=== PATIENT | male | born 1940 | race Caucasian/White ===

== ENCOUNTER → 2017-01-12 | Outpatient (CLI) | payer OTHER ==
[~2017-01-12] MED LIST: ALBU90AE PO; AMLO5TAB2 PO; ASPI-496 PO; ATOR40TA PO; BUDE0.5A INH; CALC1TAB62 PO; CLOP75TA PO; CYAN10005 PO; GABA-827 PO; GABA400C PO; GLIP10TA13 PO; INSU100I13 SQ; LANS15CA5 PO; LISI-170 PO; METF850T2 PO; OMEP20TA62 PO; SAXA5TAB PO
== END | disposition home or self-care (01) ==
LOC: STAR 11:12
PROVIDERS: ATTEND Neurological Surgery
DX: Z01.818 Encounter for other preprocedural examination (principal); M48.06 Spinal stenosis, lumbar region
CPT/HCPCS: 93005

== ENCOUNTER 2017-01-18 08:56 | Inpatient (IN) | payer OTHER ==
[~2017-01-18] VITALS: Ht 185.4 cm; Wt 103.3 kg
[~2017-01-18 08:56] MED LIST changes: +BACITRACIN 50,000 UNIT ONE; +BUPIVACAINE/PF 0.5% ONE; +BUPIVACAINE/PF-EPI 0.5% 1:200K ONE; +THROMBIN 5,000 UNIT VIAL TP ONE; +VANCOMYCIN 1,000 MG ONE
[2017-01-18] MEDS ORDERED: HYDROmorphone 1 MG/ML, 1ML ONE (13:25)
[2017-01-18] MEDS ORDERED: FENTANYL PF 250 MCG/5ML ONE (13:26)
[2017-01-18 14:31] VITALS: BP 166/90
[2017-01-18] MEDS ORDERED: LIDOCAINE 1%, 2ML ONE (14:49)
[2017-01-18] MEDS ORDERED: GLYCOPYRROLATE 0.2MG/1ML ONE (15:58)
[2017-01-18] MEDS ORDERED: PHENYLEPHRINE 10 MG/ML ONE (15:58)
[2017-01-18] MEDS ORDERED: PROPOFOL 10 MG/ML, 20ML ONE ×2 (15:58)
[2017-01-18] MEDS ORDERED: CEFAZOLIN 1,000 MG ONE (15:58)
[2017-01-18] MEDS ORDERED: SUCCINYLCHOLINE 20 MG/ML, 10ML ONE (15:58)
[2017-01-18] MEDS ORDERED: ONDANSETRON 2MG/ML, 2ML ONE (15:58)
[2017-01-18] MEDS ORDERED: ONDANSETRON 2MG/ML, 2ML IVPush PRN (17:00)
[2017-01-18] MEDS ORDERED: hydrALAzine 20 MG/ML, 1ML IV PRN (17:00)
[2017-01-18] MEDS ORDERED: METOCLOPRAMIDE 5 MG/ML, 2ML IV PRN (17:00)
[2017-01-18] MEDS ORDERED: OXYcodone 5 MG/5 ML ORAL.SOL UDC PO PRN (17:00)
[2017-01-18] MEDS ORDERED: FENTANYL PF 100 MCG/2ML IV PRN (17:00)
[2017-01-18] MEDS ORDERED: HYDROmorphone 1 MG/ML, 1ML IV PRN (17:00)
[2017-01-18] MEDS ORDERED: ACETAMINOPHEN 325 MG TABLET PO PRN (17:00)
[2017-01-18] MEDS ORDERED: EPHEDRINE 50 MG/ML, 1ML IVPush PRN (17:00)
[2017-01-18] MEDS ORDERED: METOPROLOL 1 MG/ML, 5ML IV PRN (17:00)
[2017-01-18] MEDS ORDERED: LABETALOL 5MG/ML, 20ML IV PRN ×2 (17:00→21:00)
[2017-01-18] MEDS ORDERED: PROMETHAZINE 25 MG/ML, 1ML IV PRN (17:00)
[2017-01-18] MEDS ORDERED: MEPERIDINE/PF 25MG/0.5ML IVPush PRN (17:00)
[2017-01-18] MEDS ORDERED: ACETAMINOPHEN 650 MG/20.3 ML UDC ONE (17:52)
[2017-01-18] MEDS ORDERED: FENTANYL PF 100 MCG/2ML ONE (17:52)
[2017-01-18] MEDS ORDERED: HYDROmorphone 2 MG/ML, 1ML ONE (17:52)
[2017-01-18] MEDS ORDERED: OXYcodone 5 MG/5 ML ORAL.SOL UDC ONE (17:52)
[2017-01-18] MEDS ORDERED: PHARMACY MAY ADJ FOR RENAL FX MC PRN (20:00)
[2017-01-18 20:30] VITALS: BP 129/74
[2017-01-18] MEDS ORDERED: ALBUTEROL SULFATE 2.5 MG/3 ML NPPB PRN (20:30)
[2017-01-18] MEDS ORDERED: BISACODYL 10 MG SUPP PR PRN (21:00)
[2017-01-18] MEDS: BUDESONIDE 0.5 MG/2 ML INHA NPPB SCH (21:00)
[2017-01-18] MEDS ORDERED: LACTATED RINGERS 1,000 ML IV SCH (21:00)
[2017-01-18] MEDS ORDERED: morphine SULFATE 10 MG/ML, 1ML IV PRN (21:00)
[2017-01-18] MEDS ORDERED: METHOCARBAMOL 750 MG TABLET PO PRN (21:00)
[2017-01-18] MEDS ORDERED: DIPHENHYDRAMINE 50 MG CAPSULE PO PRN (21:00)
[2017-01-18] MEDS ORDERED: DIPHENHYDRAMINE 50 MG/ML, 1ML IVPush PRN (21:00)
[2017-01-18] MEDS: ATORVASTATIN 40 MG TABLET PO SCH (22:33)
[2017-01-18] MEDS: GABAPENTIN 400 MG CAPSULE PO SCH (22:33)
[2017-01-18] MEDS: LABETALOL 5MG/ML, 20ML IV SCH (22:34)
[2017-01-19] MEDS: CEFAZOLIN PMX 1GM/50ML 50 ML IVPB SCH ×2 (00:19→09:08)
[2017-01-19 00:23] VITALS: BP 133/72
[2017-01-19] MEDS: ONDANSETRON 2MG/ML, 2ML IV PRN (02:46)
[2017-01-19] MEDS: LABETALOL 5MG/ML, 20ML IV SCH (04:40)
[2017-01-19] MEDS: LACTATED RINGERS 1,000 ML IV SCH ×3 (04:40→23:00)
[2017-01-19 05:15] VITALS: BP 136/78
[2017-01-19 05:22] LABS: BLOOD UREA NITROGEN 24 mg/dL (7-18)
[2017-01-19 08:20] VITALS: BP 113/69
[2017-01-19] MEDS: AMLODIPINE 5 MG TABLET PO SCH (08:24)
[2017-01-19] MEDS: HYDROcodone/APAP 10/325 MG TABLET PO PRN ×3 (08:24→17:22)
[2017-01-19] MEDS: TAMSULOSIN 0.4 MG CAP.ER.24H PO SCH ×2 (09:00→09:04)
[2017-01-19] MEDS: BUDESONIDE 0.5 MG/2 ML INHA NPPB SCH ×3 (09:00→19:40)
[2017-01-19] MEDS: ONGLYZA 5 MG HOMEMEDPO SCH (09:00)
[2017-01-19] MEDS: LISINOPRIL 10 MG TABLET PO SCH (09:03)
[2017-01-19] MEDS: SENNA/DOCUSATE TABLET PO SCH (09:04)
[2017-01-19] MEDS: PANTOPROZOLE 40MG TABLET PO SCH ×2 (09:04→17:22)
[2017-01-19] MEDS: GABAPENTIN 400 MG CAPSULE PO SCH ×2 (09:04→20:39)
[2017-01-19] MEDS: metFORMIN 850 MG TABLET PO SCH ×2 (09:04→17:22)
[2017-01-19 14:42] VITALS: BP 117/65
[2017-01-19 20:13] VITALS: BP 104/67
[2017-01-19] MEDS: ATORVASTATIN 40 MG TABLET PO SCH (20:39)
[2017-01-19] MEDS ORDERED: INSULIN REGULAR 100 UNITS/ML, 3ML VIAL SQ-INSULIN ONE (21:30)
[2017-01-19] MEDS: BETHANECHOL 25 MG TABLET PO SCH (22:46)
[2017-01-20 01:50] VITALS: BP 101/58
[2017-01-20] MEDS: INSULIN REGULAR 100 UNITS/ML, 3ML VIAL SQ-INSULIN SCH ×3 (08:43→17:18)
[2017-01-20] MEDS: GABAPENTIN 400 MG CAPSULE PO SCH ×2 (08:43→21:45)
[2017-01-20] MEDS: metFORMIN 850 MG TABLET PO SCH ×2 (08:43→17:18)
[2017-01-20] MEDS: LISINOPRIL 10 MG TABLET PO SCH (08:43)
[2017-01-20] MEDS: SENNA/DOCUSATE TABLET PO SCH (08:43)
[2017-01-20] MEDS: PANTOPROZOLE 40MG TABLET PO SCH ×2 (08:43→17:18)
[2017-01-20] MEDS: AMLODIPINE 5 MG TABLET PO SCH (08:43)
[2017-01-20] MEDS: BETHANECHOL 25 MG TABLET PO SCH ×3 (08:43→21:45)
[2017-01-20] MEDS: TAMSULOSIN 0.4 MG CAP.ER.24H PO SCH (08:43)
[2017-01-20 08:45] VITALS: BP 122/48
[2017-01-20] MEDS: ONGLYZA 5 MG HOMEMEDPO SCH (09:00)
[2017-01-20] MEDS: LACTATED RINGERS 1,000 ML IV SCH ×2 (09:00→19:00)
[2017-01-20 10:43] VITALS: BP 132/62
[2017-01-20] MEDS: BUDESONIDE 0.5 MG/2 ML INHA NPPB SCH ×3 (10:50→19:22)
[2017-01-20 12:30] VITALS: BP 107/83
[2017-01-20] MEDS ORDERED: ACETAMINOPHEN 325 MG TABLET PO PRN (12:30)
[2017-01-20] MEDS: ENOXAPARIN 30 MG/0.3 ML SQ SCH (12:49)
[2017-01-20 13:38] LABS: ASPARTATE AMINO TRANSFERASE 74 U/L (15-37); BLOOD UREA NITROGEN 36 mg/dL (7-18)
[2017-01-20] MEDS: SODIUM CHLORIDE 1 GM TABLET PO SCH ×2 (16:03→21:45)
[2017-01-20] MEDS: ONDANSETRON 2MG/ML, 2ML IV PRN (16:30)
[2017-01-20] MEDS ORDERED: OMNIPAQUE 350 MG/ML, 100ML BOTTLE ONE (16:58)
[2017-01-20 18:26] VITALS: BP 110/45
[2017-01-20] MEDS ORDERED: AZITHROMYCIN 500 MG TABLET PO ONE (18:30)
[2017-01-20] MEDS ORDERED: VANCOMYCIN PER PHARMACY MC PRN (19:30)
[2017-01-20] MEDS ORDERED: PHARMACOKINETIC MONITORING MC PRN (20:30)
[2017-01-20] MEDS ORDERED: PHARMACOKINETIC CONSULTATION MC ONE (20:30)
[2017-01-20] MEDS ORDERED: DOXYCYCLINE 100MG TABLET PO SCH (21:00)
[2017-01-20] MEDS ORDERED: INSULIN REGULAR 100 UNITS/ML, 3ML VIAL SQ-INSULIN SCH (21:00)
[2017-01-20] MEDS: CEFTRIAXONE PMX 1GM/50ML 50 ML IV SCH (21:43)
[2017-01-20] MEDS: SODIUM CHLORIDE 0.9% 1,000 ML IV SCH (21:43)
[2017-01-20] MEDS: ATORVASTATIN 40 MG TABLET PO SCH (21:45)
[2017-01-20] MEDS: LEVOFLOXACIN/PMX 500MG/100ML 100 ML IV SCH (22:40)
[2017-01-21] MEDS ORDERED: INSULIN REGULAR 100 UNITS/ML, 3ML VIAL SQ-INSULIN ONE (00:30)
[2017-01-21] MEDS: VANCOMYCIN 1,800 MG in SODIUM CHLORIDE 0.9% 250 ML IV SCH ×2 (00:40→21:54)
[2017-01-21 01:20] VITALS: BP 127/56
[2017-01-21] MEDS: ENOXAPARIN 30 MG/0.3 ML SQ SCH ×2 (01:47→12:10)
[2017-01-21] MEDS: MAGNESIUM HYDROXIDE 8%, 30ML UDC PO PRN (03:27)
[2017-01-21] MEDS: LACTATED RINGERS 1,000 ML IV SCH ×2 (05:00→14:49)
[2017-01-21 05:47] LABS: BLOOD UREA NITROGEN 30 mg/dL (7-18)
[2017-01-21 05:52] LABS: ASPARTATE AMINO TRANSFERASE 142 U/L (15-37)
[2017-01-21] MEDS ORDERED: INSULIN REGULAR 100 UNITS/ML, 3ML VIAL SQ-INSULIN SCH (07:00)
[2017-01-21] MEDS: INSULIN REGULAR 100 UNITS/ML, 3ML VIAL SQ-INSULIN SCH ×4 (08:19→21:56)
[2017-01-21] MEDS: PANTOPROZOLE 40MG TABLET PO SCH ×2 (08:19→16:03)
[2017-01-21] MEDS: SODIUM CHLORIDE 0.9% 1,000 ML IV SCH ×2 (08:19→20:00)
[2017-01-21] MEDS: SENNA/DOCUSATE TABLET PO SCH (08:20)
[2017-01-21] MEDS: AMLODIPINE 5 MG TABLET PO SCH (08:20)
[2017-01-21] MEDS: TAMSULOSIN 0.4 MG CAP.ER.24H PO SCH (08:20)
[2017-01-21] MEDS: GABAPENTIN 400 MG CAPSULE PO SCH ×2 (08:20→21:55)
[2017-01-21] MEDS: BETHANECHOL 25 MG TABLET PO SCH ×3 (08:20→21:55)
[2017-01-21] MEDS: SODIUM CHLORIDE 1 GM TABLET PO SCH ×3 (08:20→21:55)
[2017-01-21] MEDS: LISINOPRIL 10 MG TABLET PO SCH (08:20)
[2017-01-21] MEDS: ONGLYZA 5 MG HOMEMEDPO SCH (08:21)
[2017-01-21] MEDS: CEFTRIAXONE PMX 1GM/50ML 50 ML IV SCH ×2 (08:25→20:01)
[2017-01-21] MEDS ORDERED: AZITHROMYCIN 250 MG TABLET PO SCH (09:00)
[2017-01-21 09:03] VITALS: BP 123/54
[2017-01-21 09:39] LABS: BLOOD UREA NITROGEN 24 mg/dL (7-18)
[2017-01-21 14:01] VITALS: BP 113/61
[2017-01-21 20:00] VITALS: BP 134/67
[2017-01-21] MEDS: BUDESONIDE 0.5 MG/2 ML INHA NPPB SCH (21:00)
[2017-01-21] MEDS: ATORVASTATIN 40 MG TABLET PO SCH (21:54)
[2017-01-21] MEDS ORDERED: ALBUTEROL SULFATE 2.5 MG/3 ML NPPB PRN (23:00)
[2017-01-21] MEDS: LEVOFLOXACIN/PMX 500MG/100ML 100 ML IV SCH (23:37)
[2017-01-22] MEDS: LACTATED RINGERS 1,000 ML IV SCH ×2 (01:00→09:16)
[2017-01-22] MEDS: ENOXAPARIN 30 MG/0.3 ML SQ SCH ×2 (01:26→13:05)
[2017-01-22 03:10] VITALS: BP 138/61
[2017-01-22] MEDS: SODIUM CHLORIDE 0.9% 1,000 ML IV SCH ×4 (05:02→23:51)
[2017-01-22 06:11] LABS: ASPARTATE AMINO TRANSFERASE 121 U/L (15-37); BLOOD UREA NITROGEN 19 mg/dL (7-18)
[2017-01-22 06:56] VITALS: BP 155/73
[2017-01-22] MEDS: CEFTRIAXONE PMX 1GM/50ML 50 ML IV SCH ×2 (07:50→20:08)
[2017-01-22] MEDS: INSULIN REGULAR 100 UNITS/ML, 3ML VIAL SQ-INSULIN SCH ×4 (07:51→21:51)
[2017-01-22] MEDS: PANTOPROZOLE 40MG TABLET PO SCH ×2 (07:51→16:31)
[2017-01-22] MEDS: AMLODIPINE 5 MG TABLET PO SCH (07:51)
[2017-01-22] MEDS: SODIUM CHLORIDE 1 GM TABLET PO SCH ×3 (07:51→21:22)
[2017-01-22] MEDS: BETHANECHOL 25 MG TABLET PO SCH ×3 (07:51→21:22)
[2017-01-22] MEDS: SENNA/DOCUSATE TABLET PO SCH (07:51)
[2017-01-22] MEDS: MAGNESIUM HYDROXIDE 8%, 30ML UDC PO PRN (07:51)
[2017-01-22] MEDS: TAMSULOSIN 0.4 MG CAP.ER.24H PO SCH (07:51)
[2017-01-22] MEDS: ONGLYZA 5 MG HOMEMEDPO SCH (07:52)
[2017-01-22] MEDS: GABAPENTIN 400 MG CAPSULE PO SCH ×2 (07:52→21:22)
[2017-01-22] MEDS: LISINOPRIL 10 MG TABLET PO SCH (07:52)
[2017-01-22 09:20] LABS: BLOOD UREA NITROGEN 18 mg/dL (7-18)
[2017-01-22] MEDS: HYDROcodone/APAP 10/325 MG TABLET PO PRN (09:32)
[2017-01-22] MEDS: BUDESONIDE 0.5 MG/2 ML INHA NPPB SCH ×2 (11:50→20:02)
[2017-01-22 14:15] VITALS: BP 110/59
[2017-01-22 20:24] VITALS: BP 134/71
[2017-01-22] MEDS: VANCOMYCIN 1,800 MG in SODIUM CHLORIDE 0.9% 250 ML IV SCH (21:21)
[2017-01-22] MEDS: ATORVASTATIN 40 MG TABLET PO SCH (21:22)
[2017-01-22] MEDS: LEVOFLOXACIN/PMX 500MG/100ML 100 ML IV SCH (23:44)
[2017-01-23] MEDS: ENOXAPARIN 30 MG/0.3 ML SQ SCH ×2 (00:49→13:36)
[2017-01-23 02:18] VITALS: BP 132/70
[2017-01-23 05:01] LABS: BLOOD UREA NITROGEN 19 mg/dL (7-18)
[2017-01-23 05:06] LABS: ASPARTATE AMINO TRANSFERASE 90 U/L (15-37)
[2017-01-23] MEDS: HYDROcodone/APAP 5/325 TABLET PO PRN ×2 (05:45→10:05)
[2017-01-23 07:01] VITALS: BP 149/71
[2017-01-23] MEDS: SODIUM CHLORIDE 1 GM TABLET PO SCH (07:53)
[2017-01-23] MEDS: AMLODIPINE 5 MG TABLET PO SCH (07:53)
[2017-01-23] MEDS: PANTOPROZOLE 40MG TABLET PO SCH (07:54)
[2017-01-23] MEDS: LISINOPRIL 10 MG TABLET PO SCH (07:54)
[2017-01-23] MEDS: GABAPENTIN 400 MG CAPSULE PO SCH (07:54)
[2017-01-23] MEDS: SENNA/DOCUSATE TABLET PO SCH (07:55)
[2017-01-23] MEDS: ONGLYZA 5 MG HOMEMEDPO SCH (07:55)
[2017-01-23] MEDS: CEFTRIAXONE PMX 1GM/50ML 50 ML IV SCH (07:55)
[2017-01-23] MEDS: BETHANECHOL 25 MG TABLET PO SCH (07:55)
[2017-01-23] MEDS: TAMSULOSIN 0.4 MG CAP.ER.24H PO SCH (07:55)
[2017-01-23] MEDS: INSULIN REGULAR 100 UNITS/ML, 3ML VIAL SQ-INSULIN SCH ×2 (07:56→12:19)
[2017-01-23] MEDS: BUDESONIDE 0.5 MG/2 ML INHA NPPB SCH (11:05)
[2017-01-23] MEDS: SODIUM CHLORIDE 0.9% 1,000 ML IV SCH (12:21)
[2017-01-23] MEDS ORDERED: CEFEPIME 1 GM in DEXTROSE 5% 50 ML IV SCH (13:30)
[2017-01-23 13:31] VITALS: BP 163/74
[2017-01-23] MEDS ORDERED: HYDR-3307 PO (14:18)
[2017-01-23] MEDS ORDERED: TAMS-11 PO (14:18)
[2017-01-23] MEDS ORDERED: METH750T87 PO (14:18)
[2017-01-23 14:37] VITALS: BP 140/72
[2017-01-23] MEDS ORDERED: CEFE2FRO IV (15:11)
[2017-01-23] MEDS ORDERED: INSU100I13 SQ (15:11)
== END 2017-01-23 15:47 | DRG 518 ==
LOC: EDSTATUS 09:30 → ORIP 14:05 → 4NOR 19:31
PROVIDERS: ADMIT Neurological Surgery; ATTEND Neurological Surgery
PROC: 01NB0ZZ Release Lumbar Nerve, Open Approach (ICD-10-PCS; 2017-01-18)
PROC: 00UT0JZ Supplement Spinal Meninges with Synthetic Substitute, Open Approach (ICD-10-PCS; 2017-01-18)
PROC: 01NR0ZZ Release Sacral Nerve, Open Approach (ICD-10-PCS; 2017-01-18)
PROC: 4A11X4G Monitoring of Peripheral Nervous Electrical Activity, Intraoperative, External Approach (ICD-10-PCS; principal; 2017-01-18 16:30)
PROC: 0T9B70Z Drainage of Bladder with Drainage Device, Via Natural or Artificial Opening (ICD-10-PCS; 2017-01-20)
DX: M48.06 Spinal stenosis, lumbar region (principal); N17.0 Acute kidney failure with tubular necrosis; J18.9 Pneumonia, unspecified organism; E87.1 Hypo-osmolality and hyponatremia; J44.0 Chronic obstructive pulmonary disease with (acute) lower respiratory infection; J96.10 Chronic respiratory failure, unspecified whether with hypoxia or hypercapnia; J98.11 Atelectasis; K56.7 Ileus, unspecified; G96.11 Dural tear; M51.16 Intervertebral disc disorders with radiculopathy, lumbar region; E11.40 Type 2 diabetes mellitus with diabetic neuropathy, unspecified; E11.65 Type 2 diabetes mellitus with hyperglycemia; E11.69 Type 2 diabetes mellitus with other specified complication; E78.5 Hyperlipidemia, unspecified; E86.0 Dehydration; I11.9 Hypertensive heart disease without heart failure; E11.51 Type 2 diabetes mellitus with diabetic peripheral angiopathy without gangrene; R33.9 Retention of urine, unspecified; Z87.891 Personal history of nicotine dependence; Z99.81 Dependence on supplemental oxygen; Z88.0 Allergy status to penicillin; I73.9 Peripheral vascular disease, unspecified; M48.07 Spinal stenosis, lumbosacral region
CPT/HCPCS: 36415; 71010; 71275; 72100; 74020; 80048; 80053; 81001; 82040; 82962; 83036; 85025; 85379; 87040; 87086; 94640; C1729; J0690; J0692; J0696; J1170; J1650; J1815; J1956; J2405; J2704; J3010; J3370; J3490; J7626; Q9967; C1781; J0330; J2270; J2370; J7030; J7050; J7120

== ENCOUNTER 2017-02-03 08:26 | Inpatient (IN) | payer OTHER ==
[~2017-02-03] VITALS: Ht 185.4 cm; Wt 93.6 kg
[~2017-02-03 08:26] MED LIST changes: -BACITRACIN 50,000 UNIT ONE; -BUPIVACAINE/PF 0.5% ONE; -BUPIVACAINE/PF-EPI 0.5% 1:200K ONE; +CEFE2FRO IV; +HYDR-3307 PO; +METH750T87 PO; +TAMS-11 PO; -THROMBIN 5,000 UNIT VIAL TP ONE; -VANCOMYCIN 1,000 MG ONE
[2017-02-03] MEDS ORDERED: SODIUM CHLORIDE 0.9% 1,000 ML IV ONE (08:39)
[2017-02-03] MEDS ORDERED: ONDANSETRON 2MG/ML, 2ML IVPush ONE (09:00)
[2017-02-03] MEDS ORDERED: SODIUM CHLORIDE FLUSH 10ML SYR IVF ONE (09:00)
[2017-02-03] MEDS ORDERED: PLEASE ENTER HEIGHT AND WEIGHT MC SCH (09:00)
[2017-02-03 09:18] LABS: ASPARTATE AMINO TRANSFERASE 17 U/L (15-37); BLOOD UREA NITROGEN 74 mg/dL (7-18)
[2017-02-03] MEDS ORDERED: CALCIUM CHLORIDE 10%, 10ML SYR IVPush ONE (09:30)
[2017-02-03] MEDS ORDERED: DEXTROSE 50%, 50ML SYRINGE IVPush ONE (09:30)
[2017-02-03] MEDS ORDERED: SODIUM BICARB 8.4%, 50ML SYRINGE IVPush ONE (09:30)
[2017-02-03] MEDS ORDERED: PANTOPRAZOLE 80 MG in SODIUM CHLORIDE 0.9% 50 ML IVPB ONE (09:30)
[2017-02-03] MEDS ORDERED: INSULIN REGULAR 100 UNITS/ML, 3ML VIAL IVPush ONE (09:30)
[2017-02-03] MEDS ORDERED: ONDANSETRON 2MG/ML, 2ML ONE (09:38)
[2017-02-03] MEDS ORDERED: CALCIUM CHLORIDE 10%, 10ML SYR ONE (09:39)
[2017-02-03] MEDS ORDERED: DEXTROSE 50%, 50ML VIAL ONE (09:39)
[2017-02-03] MEDS ORDERED: SODIUM BICARBONATE 1 MEQ/ML, 50ML VIAL ONE (09:41)
[2017-02-03] MEDS ORDERED: INSULIN SINGLE DOSE, ER SQ-INSULIN ONE (09:43)
[2017-02-03] MEDS ORDERED: PANTOPRAZOLE 80 MG in SODIUM CHLORIDE 0.9% 100 ML IV SCH (10:00)
[2017-02-03] MEDS ORDERED: SODIUM CHLORIDE FLUSH 10ML SYR IVF PRN (10:30)
[2017-02-03] MEDS ORDERED: AMLO5TAB4 PO (11:03)
[2017-02-03] MEDS ORDERED: FAMO-79 PO (11:04)
[2017-02-03] MEDS ORDERED: SENN8.6T98 PO (11:06)
[2017-02-03] MEDS ORDERED: CLOP75TA22 PO (11:07)
[2017-02-03] MEDS ORDERED: ASPI-515 PO (11:07)
[2017-02-03] MEDS ORDERED: ATOR40TA78 PO (11:08)
[2017-02-03] MEDS ORDERED: INSU100V8 SQ (11:12)
[2017-02-03] MEDS ORDERED: ENOX40SY4 SQ (11:15)
[2017-02-03] MEDS ORDERED: BETH25TA16 PO (11:16)
[2017-02-03] MEDS ORDERED: ALBU2.5V NEB (11:18)
[2017-02-03] MEDS ORDERED: INSU100V5 SQ-INSULIN (11:20)
[2017-02-03] MEDS: PANTOPRAZOLE 80 MG in SODIUM CHLORIDE 0.9% 100 ML IV SCH ×2 (11:30→22:48)
[2017-02-03] MEDS ORDERED: INSULIN DETEMIR 100 UNITS/ML, PEN SQ-INSULIN SCH (11:30)
[2017-02-03] MEDS ORDERED: [UNRECOGNIZED DRUG - OTHER] PO SCH (11:30)
[2017-02-03] MEDS ORDERED: VITAMIN D3 PO SCH (11:30)
[2017-02-03] MEDS: BETHANECHOL 25 MG TABLET PO SCH ×3 (11:30→21:53)
[2017-02-03] MEDS ORDERED: CALCIUM CARBONATE PO SCH (11:30)
[2017-02-03] MEDS ORDERED: Albuterol Sulfate (Proair Respiclick) INH PRN (11:30)
[2017-02-03] MEDS: GABAPENTIN 400 MG CAPSULE PO SCH ×3 (11:30→21:53)
[2017-02-03] MEDS: SAXAGLIPTIN PO SCH (11:30)
[2017-02-03] MEDS: METHOCARBAMOL 750 MG TABLET PO SCH ×3 (11:30→21:53)
[2017-02-03] MEDS ORDERED: INSULIN REGULAR 100 UNITS/ML, 3ML VIAL SQ-INSULIN SCH (11:30)
[2017-02-03] MEDS ORDERED: morphine SULFATE 10 MG/ML, 1ML IVPush PRN (12:00)
[2017-02-03] MEDS ORDERED: ACETAMINOPHEN 325 MG TABLET PO PRN (12:00)
[2017-02-03] MEDS ORDERED: HYDROcodone/APAP 5/325 TABLET PO PRN (12:00)
[2017-02-03] MEDS ORDERED: SODIUM POLYSTYRENE SULFONATE ORAL SUSP PO ONE (12:00)
[2017-02-03] MEDS ORDERED: ONDANSETRON 2MG/ML, 2ML IVPush PRN (12:00)
[2017-02-03] MEDS ORDERED: hydrALAzine 20 MG/ML, 1ML IVPush PRN (12:00)
[2017-02-03] MEDS: INSULIN REGULAR, HUMAN 100 UNIT/ML 3ML VIAL LOW DOSE SS SQ-INSULIN SCH ×3 (12:28→21:52)
[2017-02-03 12:32] VITALS: BP 153/71
[2017-02-03] MEDS: SODIUM CHLORIDE 0.9% 1,000 ML IV SCH (14:20)
[2017-02-03] MEDS: POLYETHYLENE GLYCOL 17 GM PACKET PO SCH ×2 (14:21→21:51)
[2017-02-03] MEDS: CYANOCOBALAMIN 1,000 MCG TABLET PO SCH (14:22)
[2017-02-03] MEDS: AMLODIPINE 5 MG TABLET PO SCH (14:22)
[2017-02-03] MEDS: SENNOSIDES 8.6 MG TABLET PO SCH (14:23)
[2017-02-03] MEDS: CALCIUM CARBONATE 500 MG TAB.CHEW PO SCH (14:23)
[2017-02-03] MEDS: CHOLECALCIFEROL 400 UNITS TABLET PO SCH (14:23)
[2017-02-03] MEDS: TAMSULOSIN 0.4 MG CAP.ER.24H PO SCH (14:23)
[2017-02-03] MEDS ORDERED: GOLYTELY 4,000ML ORAL.SOL PO ONE (15:00)
[2017-02-03] MEDS: BUDESONIDE 0.5 MG/2 ML INHA INH SCH ×2 (16:00→21:00)
[2017-02-03 18:52] LABS: BLOOD UREA NITROGEN 68 mg/dL (7-18)
[2017-02-03 18:59] VITALS: BP 132/72
[2017-02-03] MEDS: INSULIN DETEMIR 100 UNITS/ML, PEN SQ-INSULIN SCH (21:52)
[2017-02-03] MEDS: ATORVASTATIN 40 MG TABLET PO SCH (21:53)
[2017-02-04] MEDS: SODIUM CHLORIDE 0.9% 1,000 ML IV SCH ×3 (00:06→11:32)
[2017-02-04 01:20] VITALS: BP 112/61
[2017-02-04 06:28] LABS: ASPARTATE AMINO TRANSFERASE 24 U/L (15-37); BLOOD UREA NITROGEN 42 mg/dL (7-18)
[2017-02-04 06:40] VITALS: BP 115/57
[2017-02-04] MEDS ORDERED: FENTANYL PF 100 MCG/2ML ONE (06:59)
[2017-02-04] MEDS ORDERED: MIDAZOLAM 1 MG/ML, 5ML ONE ×2 (06:59→07:00)
[2017-02-04] MEDS: INSULIN REGULAR, HUMAN 100 UNIT/ML 3ML VIAL LOW DOSE SS SQ-INSULIN SCH ×4 (07:00→20:07)
[2017-02-04] MEDS: BUDESONIDE 0.5 MG/2 ML INHA INH SCH ×2 (09:00→21:00)
[2017-02-04] MEDS: SAXAGLIPTIN PO SCH (09:00)
[2017-02-04] MEDS ORDERED: CLOPIDOGREL 75 MG TABLET PO SCH (11:30)
[2017-02-04] MEDS: POLYETHYLENE GLYCOL 17 GM PACKET PO SCH ×2 (11:40→20:06)
[2017-02-04] MEDS: INSULIN DETEMIR 100 UNITS/ML, PEN SQ-INSULIN SCH ×2 (11:40→20:07)
[2017-02-04] MEDS: OMEPRAZOLE 20 MG CAPSULE.DR PO SCH ×2 (11:40→20:06)
[2017-02-04] MEDS: CHOLECALCIFEROL 400 UNITS TABLET PO SCH (11:41)
[2017-02-04] MEDS: AMLODIPINE 5 MG TABLET PO SCH (11:41)
[2017-02-04] MEDS: SENNOSIDES 8.6 MG TABLET PO SCH (11:41)
[2017-02-04] MEDS: GABAPENTIN 400 MG CAPSULE PO SCH ×3 (11:41→20:06)
[2017-02-04] MEDS: TAMSULOSIN 0.4 MG CAP.ER.24H PO SCH (11:41)
[2017-02-04] MEDS: CALCIUM CARBONATE 500 MG TAB.CHEW PO SCH (11:41)
[2017-02-04] MEDS: METHOCARBAMOL 750 MG TABLET PO SCH ×3 (11:41→20:06)
[2017-02-04] MEDS: CLOPIDOGREL 75 MG TABLET PO SCH (11:42)
[2017-02-04] MEDS: BETHANECHOL 25 MG TABLET PO SCH ×3 (11:42→20:06)
[2017-02-04] MEDS: CYANOCOBALAMIN 1,000 MCG TABLET PO SCH (11:42)
[2017-02-04 12:25] VITALS: BP 122/55
[2017-02-04] MEDS ORDERED: BISACODYL 10 MG SUPP PR PRN (13:30)
[2017-02-04 18:45] VITALS: BP 138/68
[2017-02-04] MEDS: ATORVASTATIN 40 MG TABLET PO SCH (20:06)
[2017-02-05] MEDS: SODIUM CHLORIDE 0.9% 1,000 ML IV SCH ×2 (00:42→14:12)
[2017-02-05 01:49] VITALS: BP 115/64
[2017-02-05 06:46] LABS: TOTAL IRON BINDING CAPACITY 182 mcg/dL (250-450)
[2017-02-05] MEDS: INSULIN REGULAR, HUMAN 100 UNIT/ML 3ML VIAL LOW DOSE SS SQ-INSULIN SCH ×4 (07:00→21:00)
[2017-02-05] MEDS: INSULIN DETEMIR 100 UNITS/ML, PEN SQ-INSULIN SCH ×2 (09:00→21:00)
[2017-02-05] MEDS: SENNOSIDES 8.6 MG TABLET PO SCH (09:00)
[2017-02-05] MEDS: CYANOCOBALAMIN 1,000 MCG TABLET PO SCH (09:00)
[2017-02-05] MEDS: CALCIUM CARBONATE 500 MG TAB.CHEW PO SCH (09:00)
[2017-02-05] MEDS: TAMSULOSIN 0.4 MG CAP.ER.24H PO SCH (09:00)
[2017-02-05] MEDS: BETHANECHOL 25 MG TABLET PO SCH ×3 (09:00→21:00)
[2017-02-05] MEDS: AMLODIPINE 5 MG TABLET PO SCH (09:00)
[2017-02-05] MEDS: BUDESONIDE 0.5 MG/2 ML INHA INH SCH ×2 (09:00→21:00)
[2017-02-05] MEDS: OMEPRAZOLE 20 MG CAPSULE.DR PO SCH ×2 (09:00→21:00)
[2017-02-05] MEDS: POLYETHYLENE GLYCOL 17 GM PACKET PO SCH ×2 (09:00→21:00)
[2017-02-05] MEDS: METHOCARBAMOL 750 MG TABLET PO SCH ×3 (09:00→21:00)
[2017-02-05] MEDS: SAXAGLIPTIN PO SCH (09:00)
[2017-02-05] MEDS: CHOLECALCIFEROL 400 UNITS TABLET PO SCH (09:00)
[2017-02-05] MEDS: CLOPIDOGREL 75 MG TABLET PO SCH (09:00)
[2017-02-05] MEDS: GABAPENTIN 400 MG CAPSULE PO SCH ×3 (09:00→21:00)
[2017-02-05] MEDS ORDERED: INSULIN DETEMIR 100 UNITS/ML, PEN SQ-INSULIN ONE (18:00)
[2017-02-05] MEDS ORDERED: INSULIN ASPART 100 UNITS/ML, PEN SQ-INSULIN ONE (18:00)
[2017-02-05] MEDS ORDERED: INSULIN REGULAR 100 UNITS/ML, 3ML VIAL SQ-INSULIN ONE (18:00)
[2017-02-05] MEDS: ATORVASTATIN 40 MG TABLET PO SCH (21:00)
[2017-02-06] MEDS: SODIUM CHLORIDE 0.9% 1,000 ML IV SCH ×3 (03:32→22:54)
[2017-02-06] MEDS: INSULIN REGULAR, HUMAN 100 UNIT/ML 3ML VIAL LOW DOSE SS SQ-INSULIN SCH ×4 (07:00→22:56)
[2017-02-06] MEDS: CYANOCOBALAMIN 1,000 MCG TABLET PO SCH (09:00)
[2017-02-06] MEDS: CALCIUM CARBONATE 500 MG TAB.CHEW PO SCH (09:00)
[2017-02-06] MEDS: METHOCARBAMOL 750 MG TABLET PO SCH ×3 (09:00→22:55)
[2017-02-06] MEDS: BUDESONIDE 0.5 MG/2 ML INHA INH SCH ×2 (09:00→21:00)
[2017-02-06] MEDS: GABAPENTIN 400 MG CAPSULE PO SCH ×3 (09:00→22:55)
[2017-02-06] MEDS: SENNOSIDES 8.6 MG TABLET PO SCH (09:00)
[2017-02-06] MEDS: CLOPIDOGREL 75 MG TABLET PO SCH (09:00)
[2017-02-06] MEDS: SAXAGLIPTIN PO SCH (09:00)
[2017-02-06] MEDS: CHOLECALCIFEROL 400 UNITS TABLET PO SCH (09:00)
[2017-02-06] MEDS: BETHANECHOL 25 MG TABLET PO SCH ×3 (09:00→22:55)
[2017-02-06] MEDS: AMLODIPINE 5 MG TABLET PO SCH (09:00)
[2017-02-06] MEDS: POLYETHYLENE GLYCOL 17 GM PACKET PO SCH ×2 (09:00→22:54)
[2017-02-06] MEDS: OMEPRAZOLE 20 MG CAPSULE.DR PO SCH ×2 (09:00→22:55)
[2017-02-06] MEDS: TAMSULOSIN 0.4 MG CAP.ER.24H PO SCH (09:00)
[2017-02-06] MEDS: INSULIN DETEMIR 100 UNITS/ML, PEN SQ-INSULIN SCH ×2 (09:00→17:04)
[2017-02-06 16:01] VITALS: BP_SYST 120; BP_SYST 89; BP_SYST 96; BP_DIAS 57; BP_DIAS 73
[2017-02-06 16:10] VITALS: BP 120/73
[2017-02-06] MEDS ORDERED: INSULIN DETEMIR 100 UNITS/ML, PEN SQ-INSULIN ONE (17:00)
[2017-02-06 20:00] VITALS: BP 125/70
[2017-02-06] MEDS ORDERED: INSULIN DETEMIR 100 UNITS/ML, PEN SQ-INSULIN SCH (21:00)
[2017-02-06] MEDS: ATORVASTATIN 40 MG TABLET PO SCH (22:54)
[2017-02-07 02:00] VITALS: BP 125/71
[2017-02-07] MEDS: SODIUM CHLORIDE 0.9% 1,000 ML IV SCH ×2 (06:07→13:54)
[2017-02-07] MEDS: INSULIN REGULAR, HUMAN 100 UNIT/ML 3ML VIAL LOW DOSE SS SQ-INSULIN SCH ×4 (07:00→22:55)
[2017-02-07] MEDS ORDERED: INSULIN DETEMIR 100 UNITS/ML, PEN SQ-INSULIN SCH (08:00)
[2017-02-07 08:13] VITALS: BP_SYST 125; BP_SYST 77; BP_SYST 92; BP_DIAS 48; BP_DIAS 57; BP_DIAS 72
[2017-02-07] MEDS: BUDESONIDE 0.5 MG/2 ML INHA INH SCH ×2 (09:00→21:00)
[2017-02-07] MEDS: SENNOSIDES 8.6 MG TABLET PO SCH (09:00)
[2017-02-07] MEDS: AMLODIPINE 5 MG TABLET PO SCH (09:00)
[2017-02-07] MEDS: POLYETHYLENE GLYCOL 17 GM PACKET PO SCH ×2 (09:00→22:50)
[2017-02-07] MEDS: INSULIN DETEMIR 100 UNITS/ML, PEN SQ-INSULIN SCH ×4 (09:00→22:56)
[2017-02-07] MEDS: SAXAGLIPTIN PO SCH (09:00)
[2017-02-07] MEDS: BETHANECHOL 25 MG TABLET PO SCH ×3 (09:41→22:54)
[2017-02-07] MEDS: OMEPRAZOLE 20 MG CAPSULE.DR PO SCH ×2 (09:41→22:53)
[2017-02-07] MEDS: CALCIUM CARBONATE 500 MG TAB.CHEW PO SCH (09:41)
[2017-02-07] MEDS: CLOPIDOGREL 75 MG TABLET PO SCH (09:41)
[2017-02-07] MEDS: GABAPENTIN 400 MG CAPSULE PO SCH ×3 (09:41→22:53)
[2017-02-07] MEDS: TAMSULOSIN 0.4 MG CAP.ER.24H PO SCH (09:42)
[2017-02-07] MEDS: CHOLECALCIFEROL 400 UNITS TABLET PO SCH (09:42)
[2017-02-07] MEDS: CYANOCOBALAMIN 1,000 MCG TABLET PO SCH (09:42)
[2017-02-07] MEDS: METHOCARBAMOL 750 MG TABLET PO SCH ×3 (09:42→22:54)
[2017-02-07] MEDS: ACETYLCYSTEINE 20%, 10ML PO SCH ×2 (10:30→22:52)
[2017-02-07 12:17] VITALS: BP 144/82
[2017-02-07] MEDS ORDERED: [UNRECOGNIZED DRUG - REMARK] MC SCH (18:30)
[2017-02-07 20:00] VITALS: BP 142/70
[2017-02-07] MEDS ORDERED: OMNIPAQUE 350 MG/ML, 100ML BOTTLE ONE (20:13)
[2017-02-07] MEDS: ATORVASTATIN 40 MG TABLET PO SCH (22:49)
[2017-02-08] MEDS: WARFARIN 7.5 MG TABLET PO-COUM SCH ×2 (00:20→18:00)
[2017-02-08] MEDS: HEPARIN 25,000 UNITS/500ML PMX 500 ML IV PRN ×2 (00:31→22:09)
[2017-02-08 00:45] VITALS: BP 126/67
[2017-02-08] MEDS: SODIUM CHLORIDE 0.9% 1,000 ML IV SCH ×2 (06:04→12:16)
[2017-02-08 06:37] VITALS: BP 150/75
[2017-02-08] MEDS: SAXAGLIPTIN PO SCH (08:45)
[2017-02-08] MEDS: INSULIN REGULAR, HUMAN 100 UNIT/ML 3ML VIAL LOW DOSE SS SQ-INSULIN SCH ×4 (08:55→22:22)
[2017-02-08] MEDS: GABAPENTIN 400 MG CAPSULE PO SCH ×3 (08:56→22:19)
[2017-02-08] MEDS: AMLODIPINE 5 MG TABLET PO SCH (08:56)
[2017-02-08] MEDS: OMEPRAZOLE 20 MG CAPSULE.DR PO SCH ×2 (08:56→22:19)
[2017-02-08] MEDS: BETHANECHOL 25 MG TABLET PO SCH ×3 (08:56→22:19)
[2017-02-08] MEDS: INSULIN DETEMIR 100 UNITS/ML, PEN SQ-INSULIN SCH ×4 (08:56→22:22)
[2017-02-08] MEDS ORDERED: AMLODIPINE 5 MG TABLET PO SCH (09:00)
[2017-02-08] MEDS: POLYETHYLENE GLYCOL 17 GM PACKET PO SCH ×2 (09:00→22:21)
[2017-02-08] MEDS: ACETYLCYSTEINE 20%, 10ML PO SCH ×2 (09:00→22:20)
[2017-02-08] MEDS: BUDESONIDE 0.5 MG/2 ML INHA INH SCH ×2 (09:00→21:00)
[2017-02-08] MEDS: CYANOCOBALAMIN 1,000 MCG TABLET PO SCH (09:02)
[2017-02-08] MEDS: CALCIUM CARBONATE 500 MG TAB.CHEW PO SCH (09:02)
[2017-02-08] MEDS: CLOPIDOGREL 75 MG TABLET PO SCH (09:02)
[2017-02-08] MEDS: METHOCARBAMOL 750 MG TABLET PO SCH ×3 (09:02→22:19)
[2017-02-08] MEDS: TAMSULOSIN 0.4 MG CAP.ER.24H PO SCH (09:02)
[2017-02-08] MEDS: CHOLECALCIFEROL 400 UNITS TABLET PO SCH (09:02)
[2017-02-08] MEDS: SENNOSIDES 8.6 MG TABLET PO SCH (09:04)
[2017-02-08 12:34] VITALS: BP 122/70
[2017-02-08 20:00] VITALS: BP 147/69
[2017-02-08] MEDS: ATORVASTATIN 40 MG TABLET PO SCH (22:21)
[2017-02-09 02:00] VITALS: BP 132/73
[2017-02-09 07:05] VITALS: BP 145/72
[2017-02-09 08:14] VITALS: BP_SYST 111; BP_SYST 87; BP_DIAS 52; BP_DIAS 63
[2017-02-09] MEDS: ACETYLCYSTEINE 20%, 10ML PO SCH ×2 (09:00→21:00)
[2017-02-09] MEDS: INSULIN DETEMIR 100 UNITS/ML, PEN SQ-INSULIN SCH ×4 (09:00→21:29)
[2017-02-09] MEDS: BUDESONIDE 0.5 MG/2 ML INHA INH SCH (09:00)
[2017-02-09] MEDS: SAXAGLIPTIN PO SCH (09:00)
[2017-02-09] MEDS: POLYETHYLENE GLYCOL 17 GM PACKET PO SCH ×3 (09:00→21:00)
[2017-02-09] MEDS: INSULIN REGULAR, HUMAN 100 UNIT/ML 3ML VIAL LOW DOSE SS SQ-INSULIN SCH ×4 (09:13→21:28)
[2017-02-09] MEDS: CHOLECALCIFEROL 400 UNITS TABLET PO SCH (09:14)
[2017-02-09] MEDS: METHOCARBAMOL 750 MG TABLET PO SCH ×3 (09:14→21:26)
[2017-02-09] MEDS: CALCIUM CARBONATE 500 MG TAB.CHEW PO SCH (09:14)
[2017-02-09] MEDS: CLOPIDOGREL 75 MG TABLET PO SCH (09:14)
[2017-02-09] MEDS: SENNOSIDES 8.6 MG TABLET PO SCH (09:14)
[2017-02-09] MEDS: OMEPRAZOLE 20 MG CAPSULE.DR PO SCH ×2 (09:14→21:26)
[2017-02-09] MEDS: BETHANECHOL 25 MG TABLET PO SCH ×3 (09:14→21:26)
[2017-02-09] MEDS: TAMSULOSIN 0.4 MG CAP.ER.24H PO SCH (09:14)
[2017-02-09] MEDS: GABAPENTIN 400 MG CAPSULE PO SCH ×3 (09:14→21:26)
[2017-02-09] MEDS: CYANOCOBALAMIN 1,000 MCG TABLET PO SCH (09:14)
[2017-02-09] MEDS: AMLODIPINE 5 MG TABLET PO SCH (09:15)
[2017-02-09 14:26] VITALS: BP_SYST 106; BP_SYST 111; BP_SYST 118; BP_DIAS 61; BP_DIAS 62; BP_DIAS 65
[2017-02-09] MEDS: HEPARIN 25,000 UNITS/500ML PMX 500 ML IV PRN (16:28)
[2017-02-09] MEDS: WARFARIN 7.5 MG TABLET PO-COUM SCH (16:57)
[2017-02-09 18:59] VITALS: BP 127/62
[2017-02-09] MEDS: ATORVASTATIN 40 MG TABLET PO SCH (21:26)
[2017-02-09 22:32] VITALS: BP_SYST 114; BP_SYST 135; BP_DIAS 66; BP_DIAS 68; BP_DIAS 71
[2017-02-10 06:06] LABS: ANTI-Xa-UNFRACTIONATED HEP 0.36 IU/mL (0.30-0.70)
[2017-02-10] MEDS: INSULIN REGULAR, HUMAN 100 UNIT/ML 3ML VIAL LOW DOSE SS SQ-INSULIN SCH ×4 (07:00→21:04)
[2017-02-10 07:50] VITALS: BP_SYST 112; BP_SYST 127; BP_SYST 138; BP_DIAS 64; BP_DIAS 65; BP_DIAS 66
[2017-02-10] MEDS: CHOLECALCIFEROL 400 UNITS TABLET PO SCH (07:57)
[2017-02-10] MEDS: GABAPENTIN 400 MG CAPSULE PO SCH ×3 (07:57→21:04)
[2017-02-10] MEDS: CALCIUM CARBONATE 500 MG TAB.CHEW PO SCH (07:57)
[2017-02-10] MEDS: CLOPIDOGREL 75 MG TABLET PO SCH (07:57)
[2017-02-10] MEDS: TAMSULOSIN 0.4 MG CAP.ER.24H PO SCH (07:57)
[2017-02-10] MEDS: AMLODIPINE 5 MG TABLET PO SCH (07:57)
[2017-02-10] MEDS: CYANOCOBALAMIN 1,000 MCG TABLET PO SCH (07:57)
[2017-02-10] MEDS: BETHANECHOL 25 MG TABLET PO SCH ×3 (07:57→21:04)
[2017-02-10] MEDS: POLYETHYLENE GLYCOL 17 GM PACKET PO SCH ×2 (07:57→21:05)
[2017-02-10] MEDS: OMEPRAZOLE 20 MG CAPSULE.DR PO SCH ×2 (07:57→21:05)
[2017-02-10] MEDS: INSULIN DETEMIR 100 UNITS/ML, PEN SQ-INSULIN SCH ×4 (07:58→21:03)
[2017-02-10] MEDS: SENNOSIDES 8.6 MG TABLET PO SCH (07:58)
[2017-02-10] MEDS: METHOCARBAMOL 750 MG TABLET PO SCH ×3 (07:58→21:04)
[2017-02-10] MEDS: SAXAGLIPTIN PO SCH (07:58)
[2017-02-10] MEDS: HEPARIN 25,000 UNITS/500ML PMX 500 ML IV PRN (09:48)
[2017-02-10 13:22] VITALS: BP_SYST 106; BP_SYST 127; BP_SYST 132; BP_DIAS 60; BP_DIAS 65; BP_DIAS 66
[2017-02-10] MEDS: WARFARIN 7.5 MG TABLET PO-COUM SCH (17:00)
[2017-02-10 20:05] VITALS: BP_SYST 107; BP_SYST 126; BP_SYST 96; BP_DIAS 60; BP_DIAS 65; BP_DIAS 66
[2017-02-10] MEDS: ATORVASTATIN 40 MG TABLET PO SCH (21:05)
[2017-02-11 02:13] VITALS: BP 129/70
[2017-02-11] MEDS: HEPARIN 25,000 UNITS/500ML PMX 500 ML IV PRN (02:46)
[2017-02-11 05:30] LABS: ANTI-Xa-UNFRACTIONATED HEP 0.3 IU/mL (0.30-0.70)
[2017-02-11 07:37] VITALS: BP_SYST 116; BP_SYST 145; BP_SYST 92; BP_DIAS 55; BP_DIAS 61; BP_DIAS 72
[2017-02-11] MEDS: INSULIN REGULAR, HUMAN 100 UNIT/ML 3ML VIAL LOW DOSE SS SQ-INSULIN SCH ×4 (08:27→22:05)
[2017-02-11] MEDS: INSULIN DETEMIR 100 UNITS/ML, PEN SQ-INSULIN SCH ×4 (08:30→22:05)
[2017-02-11] MEDS: METHOCARBAMOL 750 MG TABLET PO SCH ×3 (09:00→22:03)
[2017-02-11] MEDS: SAXAGLIPTIN PO SCH (09:00)
[2017-02-11] MEDS: POLYETHYLENE GLYCOL 17 GM PACKET PO SCH ×2 (09:00→22:04)
[2017-02-11] MEDS: SENNOSIDES 8.6 MG TABLET PO SCH (09:00)
[2017-02-11] MEDS: BETHANECHOL 25 MG TABLET PO SCH ×3 (09:26→22:04)
[2017-02-11] MEDS: OMEPRAZOLE 20 MG CAPSULE.DR PO SCH ×2 (09:26→22:04)
[2017-02-11] MEDS: CLOPIDOGREL 75 MG TABLET PO SCH (09:26)
[2017-02-11] MEDS: CYANOCOBALAMIN 1,000 MCG TABLET PO SCH (09:27)
[2017-02-11] MEDS: CALCIUM CARBONATE 500 MG TAB.CHEW PO SCH (09:27)
[2017-02-11] MEDS: GABAPENTIN 400 MG CAPSULE PO SCH ×3 (09:27→22:04)
[2017-02-11] MEDS: AMLODIPINE 5 MG TABLET PO SCH (09:27)
[2017-02-11] MEDS: CHOLECALCIFEROL 400 UNITS TABLET PO SCH (09:28)
[2017-02-11] MEDS: TAMSULOSIN 0.4 MG CAP.ER.24H PO SCH (09:28)
[2017-02-11 14:43] VITALS: BP_SYST 111; BP_SYST 122; BP_SYST 125; BP_DIAS 63; BP_DIAS 66; BP_DIAS 68
[2017-02-11] MEDS: WARFARIN 7.5 MG TABLET PO-COUM SCH (17:08)
[2017-02-11 20:41] VITALS: BP 129/69
[2017-02-11] MEDS: ATORVASTATIN 40 MG TABLET PO SCH (22:04)
[2017-02-12] VITALS (7 sets, daily range): BP systolic 87–131; BP diastolic 51–68
[2017-02-12] MEDS: INSULIN DETEMIR 100 UNITS/ML, PEN SQ-INSULIN SCH ×4 (09:00→20:26)
[2017-02-12] MEDS: INSULIN REGULAR, HUMAN 100 UNIT/ML 3ML VIAL LOW DOSE SS SQ-INSULIN SCH ×4 (09:01→20:21)
[2017-02-12] MEDS: CYANOCOBALAMIN 1,000 MCG TABLET PO SCH (09:28)
[2017-02-12] MEDS: BETHANECHOL 25 MG TABLET PO SCH ×3 (09:28→20:18)
[2017-02-12] MEDS: SAXAGLIPTIN PO SCH (09:28)
[2017-02-12] MEDS: CALCIUM CARBONATE 500 MG TAB.CHEW PO SCH (09:28)
[2017-02-12] MEDS: OMEPRAZOLE 20 MG CAPSULE.DR PO SCH ×2 (09:29→20:20)
[2017-02-12] MEDS: METHOCARBAMOL 750 MG TABLET PO SCH ×3 (09:29→20:20)
[2017-02-12] MEDS: CHOLECALCIFEROL 400 UNITS TABLET PO SCH (09:29)
[2017-02-12] MEDS: GABAPENTIN 400 MG CAPSULE PO SCH ×3 (09:30→20:20)
[2017-02-12] MEDS: AMLODIPINE 5 MG TABLET PO SCH (09:30)
[2017-02-12] MEDS: CLOPIDOGREL 75 MG TABLET PO SCH (09:30)
[2017-02-12] MEDS: TAMSULOSIN 0.4 MG CAP.ER.24H PO SCH (09:30)
[2017-02-12] MEDS: SENNOSIDES 8.6 MG TABLET PO SCH (09:30)
[2017-02-12] MEDS: POLYETHYLENE GLYCOL 17 GM PACKET PO SCH ×2 (09:30→20:18)
[2017-02-12 09:40] LABS: TOTAL IRON BINDING CAPACITY 226 mcg/dL (250-450)
[2017-02-12] MEDS ORDERED: CALC200T24 PO (10:34)
[2017-02-12] MEDS ORDERED: INSU100I28 SQ-INSULIN (10:34)
[2017-02-12] MEDS ORDERED: TRAM50TA2 PO (10:34)
[2017-02-12] MEDS ORDERED: SUCR1TAB26 PO (10:34)
[2017-02-12] MEDS ORDERED: CHOL400T2 PO (10:34)
[2017-02-12] MEDS ORDERED: OMEP-110 PO (10:34)
[2017-02-12] MEDS ORDERED: WARF5TAB PO (10:34)
[2017-02-12] MEDS ORDERED: SODIUM CHLORIDE 0.9% 1,000 ML IV SCH (11:00)
[2017-02-12] MEDS: SODIUM CHLORIDE 0.9% 1,000 ML IV SCH ×2 (11:09→20:20)
[2017-02-12] MEDS ORDERED: WARFARIN 7.5 MG TABLET PO-COUM SCH (18:00)
[2017-02-12] MEDS: ATORVASTATIN 40 MG TABLET PO SCH (20:20)
[2017-02-13] VITALS (9 sets, daily range): BP systolic 102–132; BP diastolic 62–76
[2017-02-13] MEDS: SODIUM CHLORIDE 0.9% 1,000 ML IV SCH ×4 (04:51→23:45)
[2017-02-13] MEDS: INSULIN REGULAR, HUMAN 100 UNIT/ML 3ML VIAL LOW DOSE SS SQ-INSULIN SCH ×4 (07:00→20:31)
[2017-02-13] MEDS: INSULIN DETEMIR 100 UNITS/ML, PEN SQ-INSULIN SCH ×3 (08:11→20:31)
[2017-02-13] MEDS: CHOLECALCIFEROL 400 UNITS TABLET PO SCH (08:11)
[2017-02-13] MEDS: POLYETHYLENE GLYCOL 17 GM PACKET PO SCH ×2 (08:11→20:32)
[2017-02-13] MEDS: OMEPRAZOLE 20 MG CAPSULE.DR PO SCH ×2 (08:12→20:31)
[2017-02-13] MEDS: GABAPENTIN 400 MG CAPSULE PO SCH ×3 (08:12→20:31)
[2017-02-13] MEDS: METHOCARBAMOL 750 MG TABLET PO SCH ×3 (08:12→20:31)
[2017-02-13] MEDS: CLOPIDOGREL 75 MG TABLET PO SCH (08:12)
[2017-02-13] MEDS: CYANOCOBALAMIN 1,000 MCG TABLET PO SCH (08:12)
[2017-02-13] MEDS: TAMSULOSIN 0.4 MG CAP.ER.24H PO SCH (08:12)
[2017-02-13] MEDS: SENNOSIDES 8.6 MG TABLET PO SCH (08:12)
[2017-02-13] MEDS: BETHANECHOL 25 MG TABLET PO SCH ×3 (08:12→20:31)
[2017-02-13] MEDS: CALCIUM CARBONATE 500 MG TAB.CHEW PO SCH (08:12)
[2017-02-13] MEDS: AMLODIPINE 5 MG TABLET PO SCH (08:12)
[2017-02-13] MEDS: SAXAGLIPTIN PO SCH (09:00)
[2017-02-13] MEDS: WARFARIN 5 MG TABLET PO-COUM SCH (17:33)
[2017-02-13] MEDS ORDERED: WARFARIN 5 MG TABLET PO-COUM SCH (18:00)
[2017-02-13] MEDS: ATORVASTATIN 40 MG TABLET PO SCH (20:31)
[2017-02-14 00:59] VITALS: BP_SYST 109; BP_SYST 127; BP_SYST 149; BP_DIAS 60; BP_DIAS 77
[2017-02-14] MEDS: SODIUM CHLORIDE 0.9% 1,000 ML IV SCH ×3 (06:27→20:10)
[2017-02-14 08:56] VITALS: BP_SYST 113; BP_SYST 168; BP_SYST 170; BP_DIAS 69; BP_DIAS 78; BP_DIAS 84
[2017-02-14] MEDS: POLYETHYLENE GLYCOL 17 GM PACKET PO SCH ×2 (10:09→20:11)
[2017-02-14] MEDS: INSULIN DETEMIR 100 UNITS/ML, PEN SQ-INSULIN SCH ×2 (10:09→20:11)
[2017-02-14] MEDS: CHOLECALCIFEROL 400 UNITS TABLET PO SCH (10:09)
[2017-02-14] MEDS: SENNOSIDES 8.6 MG TABLET PO SCH (10:10)
[2017-02-14] MEDS: CALCIUM CARBONATE 500 MG TAB.CHEW PO SCH (10:10)
[2017-02-14] MEDS: TAMSULOSIN 0.4 MG CAP.ER.24H PO SCH (10:10)
[2017-02-14] MEDS: AMLODIPINE 5 MG TABLET PO SCH (10:10)
[2017-02-14] MEDS: BETHANECHOL 25 MG TABLET PO SCH ×3 (10:10→20:11)
[2017-02-14] MEDS: METHOCARBAMOL 750 MG TABLET PO SCH ×3 (10:11→20:11)
[2017-02-14] MEDS: SAXAGLIPTIN PO SCH (10:11)
[2017-02-14] MEDS: CLOPIDOGREL 75 MG TABLET PO SCH (10:11)
[2017-02-14] MEDS: CYANOCOBALAMIN 1,000 MCG TABLET PO SCH (10:11)
[2017-02-14] MEDS: INSULIN REGULAR, HUMAN 100 UNIT/ML 3ML VIAL LOW DOSE SS SQ-INSULIN SCH ×4 (10:11→20:11)
[2017-02-14] MEDS: GABAPENTIN 400 MG CAPSULE PO SCH ×3 (10:11→20:11)
[2017-02-14] MEDS: OMEPRAZOLE 20 MG CAPSULE.DR PO SCH ×2 (10:12→20:11)
[2017-02-14 15:00] VITALS: BP 150/79
[2017-02-14 19:04] VITALS: BP 105/61
[2017-02-14] MEDS: ATORVASTATIN 40 MG TABLET PO SCH (20:11)
[2017-02-15] MEDS: SODIUM CHLORIDE 0.9% 1,000 ML IV SCH ×3 (02:54→18:20)
[2017-02-15 05:00] VITALS: BP_SYST 126; BP_SYST 88; BP_SYST 99; BP_DIAS 56; BP_DIAS 63; BP_DIAS 71
[2017-02-15] MEDS: INSULIN REGULAR, HUMAN 100 UNIT/ML 3ML VIAL LOW DOSE SS SQ-INSULIN SCH ×4 (07:30→20:43)
[2017-02-15] MEDS: SAXAGLIPTIN PO SCH (08:23)
[2017-02-15] MEDS: CYANOCOBALAMIN 1,000 MCG TABLET PO SCH (08:42)
[2017-02-15] MEDS: CALCIUM CARBONATE 500 MG TAB.CHEW PO SCH (08:42)
[2017-02-15] MEDS: INSULIN DETEMIR 100 UNITS/ML, PEN SQ-INSULIN SCH ×2 (08:42→20:43)
[2017-02-15] MEDS: GABAPENTIN 400 MG CAPSULE PO SCH ×3 (08:43→20:44)
[2017-02-15] MEDS: METHOCARBAMOL 750 MG TABLET PO SCH ×3 (08:43→20:44)
[2017-02-15] MEDS: OMEPRAZOLE 20 MG CAPSULE.DR PO SCH ×2 (08:43→20:44)
[2017-02-15] MEDS: BETHANECHOL 25 MG TABLET PO SCH ×3 (08:43→20:44)
[2017-02-15] MEDS: TAMSULOSIN 0.4 MG CAP.ER.24H PO SCH ×2 (08:43→09:00)
[2017-02-15] MEDS: CHOLECALCIFEROL 400 UNITS TABLET PO SCH (08:44)
[2017-02-15] MEDS: CLOPIDOGREL 75 MG TABLET PO SCH (08:44)
[2017-02-15] MEDS: AMLODIPINE 5 MG TABLET PO SCH (08:48)
[2017-02-15] MEDS: POLYETHYLENE GLYCOL 17 GM PACKET PO SCH ×2 (08:51→20:44)
[2017-02-15] MEDS: SENNOSIDES 8.6 MG TABLET PO SCH (08:51)
[2017-02-15 08:52] VITALS: BP_SYST 111; BP_SYST 117; BP_SYST 118; BP_DIAS 66; BP_DIAS 69; BP_DIAS 70
[2017-02-15 13:51] VITALS: BP_SYST 132; BP_SYST 145; BP_SYST 152; BP_DIAS 64; BP_DIAS 66; BP_DIAS 67
[2017-02-15] MEDS: WARFARIN 5 MG TABLET PO-COUM SCH (17:56)
[2017-02-15 19:06] VITALS: BP_SYST 115; BP_SYST 126; BP_SYST 147; BP_DIAS 61; BP_DIAS 62
[2017-02-15] MEDS: ATORVASTATIN 40 MG TABLET PO SCH (20:44)
[2017-02-16] MEDS: SODIUM CHLORIDE 0.9% 1,000 ML IV SCH ×4 (00:54→22:40)
[2017-02-16 01:25] VITALS: BP 119/67
[2017-02-16 07:51] VITALS: BP_SYST 106; BP_SYST 109; BP_SYST 145; BP_DIAS 61; BP_DIAS 66; BP_DIAS 68
[2017-02-16] MEDS: POLYETHYLENE GLYCOL 17 GM PACKET PO SCH ×2 (09:55→20:59)
[2017-02-16] MEDS: INSULIN DETEMIR 100 UNITS/ML, PEN SQ-INSULIN SCH ×2 (09:55→21:01)
[2017-02-16] MEDS: CALCIUM CARBONATE 500 MG TAB.CHEW PO SCH (09:55)
[2017-02-16] MEDS: OMEPRAZOLE 20 MG CAPSULE.DR PO SCH ×2 (09:55→20:59)
[2017-02-16] MEDS: GABAPENTIN 400 MG CAPSULE PO SCH ×3 (09:55→20:59)
[2017-02-16] MEDS: CYANOCOBALAMIN 1,000 MCG TABLET PO SCH (09:55)
[2017-02-16] MEDS: CHOLECALCIFEROL 400 UNITS TABLET PO SCH (09:55)
[2017-02-16] MEDS: BETHANECHOL 25 MG TABLET PO SCH ×3 (09:55→21:00)
[2017-02-16] MEDS: SENNOSIDES 8.6 MG TABLET PO SCH (09:55)
[2017-02-16] MEDS: METHOCARBAMOL 750 MG TABLET PO SCH ×3 (09:56→21:00)
[2017-02-16] MEDS: CLOPIDOGREL 75 MG TABLET PO SCH (09:56)
[2017-02-16] MEDS: SAXAGLIPTIN PO SCH (09:56)
[2017-02-16] MEDS: INSULIN REGULAR, HUMAN 100 UNIT/ML 3ML VIAL LOW DOSE SS SQ-INSULIN SCH ×4 (09:56→21:00)
[2017-02-16] MEDS: AMLODIPINE 5 MG TABLET PO SCH (09:56)
[2017-02-16] MEDS: FLUDROCORTISONE 0.1 MG TABLET PO SCH (11:53)
[2017-02-16 13:07] VITALS: BP_SYST 128; BP_SYST 136; BP_SYST 149; BP_DIAS 66; BP_DIAS 70
[2017-02-16] MEDS: WARFARIN 5 MG TABLET PO-COUM SCH (17:52)
[2017-02-16 19:46] VITALS: BP_SYST 120; BP_SYST 130; BP_DIAS 67; BP_DIAS 69
[2017-02-16] MEDS: ATORVASTATIN 40 MG TABLET PO SCH (20:59)
[2017-02-17 03:12] VITALS: BP_SYST 110; BP_SYST 138; BP_SYST 90; BP_DIAS 53; BP_DIAS 64; BP_DIAS 72
[2017-02-17] MEDS: SODIUM CHLORIDE 0.9% 1,000 ML IV SCH ×2 (05:20→12:00)
[2017-02-17] MEDS: INSULIN REGULAR, HUMAN 100 UNIT/ML 3ML VIAL LOW DOSE SS SQ-INSULIN SCH ×4 (07:00→22:00)
[2017-02-17 07:34] VITALS: BP_SYST 127; BP_SYST 138; BP_SYST 152; BP_DIAS 68; BP_DIAS 71; BP_DIAS 72
[2017-02-17] MEDS: SAXAGLIPTIN PO SCH (09:00)
[2017-02-17] MEDS: INSULIN DETEMIR 100 UNITS/ML, PEN SQ-INSULIN SCH ×2 (10:25→21:59)
[2017-02-17] MEDS: POLYETHYLENE GLYCOL 17 GM PACKET PO SCH ×2 (10:26→21:58)
[2017-02-17] MEDS: CLOPIDOGREL 75 MG TABLET PO SCH (10:26)
[2017-02-17] MEDS: CHOLECALCIFEROL 400 UNITS TABLET PO SCH (10:26)
[2017-02-17] MEDS: CYANOCOBALAMIN 1,000 MCG TABLET PO SCH (10:26)
[2017-02-17] MEDS: BETHANECHOL 25 MG TABLET PO SCH ×3 (10:26→21:59)
[2017-02-17] MEDS: CALCIUM CARBONATE 500 MG TAB.CHEW PO SCH (10:26)
[2017-02-17] MEDS: OMEPRAZOLE 20 MG CAPSULE.DR PO SCH ×2 (10:26→21:58)
[2017-02-17] MEDS: METHOCARBAMOL 750 MG TABLET PO SCH ×3 (10:26→21:59)
[2017-02-17] MEDS: FLUDROCORTISONE 0.1 MG TABLET PO SCH (10:26)
[2017-02-17] MEDS: GABAPENTIN 400 MG CAPSULE PO SCH ×3 (10:26→21:58)
[2017-02-17] MEDS: AMLODIPINE 5 MG TABLET PO SCH (10:26)
[2017-02-17] MEDS: SENNOSIDES 8.6 MG TABLET PO SCH (10:26)
[2017-02-17] MEDS: MIDODRINE 5 MG TABLET PO SCH ×3 (10:33→21:59)
[2017-02-17 13:45] VITALS: BP_SYST 120; BP_SYST 131; BP_SYST 135; BP_DIAS 63; BP_DIAS 67; BP_DIAS 68
[2017-02-17] MEDS: WARFARIN 5 MG TABLET PO-COUM SCH (17:36)
[2017-02-17 21:50] VITALS: BP 146/71
[2017-02-17] MEDS: ATORVASTATIN 40 MG TABLET PO SCH (21:58)
[2017-02-17 22:01] VITALS: BP 131/74
[2017-02-17 22:07] VITALS: BP 101/63
[2017-02-18] VITALS (7 sets, daily range): BP systolic 70–142; BP diastolic 43–75
[2017-02-18] MEDS ORDERED: SODIUM CHLORIDE 0.9%, 500ML IVBOLUS ONE (04:00)
[2017-02-18 05:05] LABS: BLOOD UREA NITROGEN 14 mg/dL (7-18)
[2017-02-18] MEDS: INSULIN REGULAR, HUMAN 100 UNIT/ML 3ML VIAL LOW DOSE SS SQ-INSULIN SCH ×4 (07:00→20:54)
[2017-02-18] MEDS: SAXAGLIPTIN PO SCH (09:00)
[2017-02-18] MEDS: GABAPENTIN 400 MG CAPSULE PO SCH ×3 (09:52→20:53)
[2017-02-18] MEDS: POLYETHYLENE GLYCOL 17 GM PACKET PO SCH ×2 (09:52→20:51)
[2017-02-18] MEDS: CHOLECALCIFEROL 400 UNITS TABLET PO SCH (09:52)
[2017-02-18] MEDS: METHOCARBAMOL 750 MG TABLET PO SCH ×3 (09:52→20:52)
[2017-02-18] MEDS: CALCIUM CARBONATE 500 MG TAB.CHEW PO SCH (09:52)
[2017-02-18] MEDS: CLOPIDOGREL 75 MG TABLET PO SCH (09:52)
[2017-02-18] MEDS: INSULIN DETEMIR 100 UNITS/ML, PEN SQ-INSULIN SCH ×2 (09:52→20:55)
[2017-02-18] MEDS: CYANOCOBALAMIN 1,000 MCG TABLET PO SCH (09:52)
[2017-02-18] MEDS: MIDODRINE 5 MG TABLET PO SCH ×3 (09:52→20:52)
[2017-02-18] MEDS: OMEPRAZOLE 20 MG CAPSULE.DR PO SCH ×2 (09:52→20:53)
[2017-02-18] MEDS: FLUDROCORTISONE 0.1 MG TABLET PO SCH (09:52)
[2017-02-18] MEDS: BETHANECHOL 25 MG TABLET PO SCH ×3 (09:53→20:53)
[2017-02-18] MEDS: SENNOSIDES 8.6 MG TABLET PO SCH (09:53)
[2017-02-18] MEDS: WARFARIN 5 MG TABLET PO-COUM SCH (17:22)
[2017-02-18] MEDS: ATORVASTATIN 40 MG TABLET PO SCH (20:53)
[2017-02-19 03:23] VITALS: BP 102/56
[2017-02-19 07:03] VITALS: BP 124/67
[2017-02-19] MEDS: METHOCARBAMOL 750 MG TABLET PO SCH ×3 (09:00→21:12)
[2017-02-19] MEDS: POLYETHYLENE GLYCOL 17 GM PACKET PO SCH ×2 (09:00→21:12)
[2017-02-19] MEDS: SENNOSIDES 8.6 MG TABLET PO SCH (09:00)
[2017-02-19] MEDS: SAXAGLIPTIN PO SCH (09:00)
[2017-02-19] MEDS: CALCIUM CARBONATE 500 MG TAB.CHEW PO SCH (09:53)
[2017-02-19] MEDS: GABAPENTIN 400 MG CAPSULE PO SCH ×3 (09:54→21:12)
[2017-02-19] MEDS: FLUDROCORTISONE 0.1 MG TABLET PO SCH (09:54)
[2017-02-19] MEDS: BETHANECHOL 25 MG TABLET PO SCH (09:55)
[2017-02-19] MEDS: CYANOCOBALAMIN 1,000 MCG TABLET PO SCH (09:55)
[2017-02-19] MEDS: CLOPIDOGREL 75 MG TABLET PO SCH (09:55)
[2017-02-19] MEDS: MIDODRINE 5 MG TABLET PO SCH ×2 (09:56→21:12)
[2017-02-19] MEDS: OMEPRAZOLE 20 MG CAPSULE.DR PO SCH ×2 (09:56→21:12)
[2017-02-19] MEDS: CHOLECALCIFEROL 400 UNITS TABLET PO SCH (10:05)
[2017-02-19] MEDS: INSULIN DETEMIR 100 UNITS/ML, PEN SQ-INSULIN SCH ×2 (10:38→21:11)
[2017-02-19] MEDS: INSULIN ASPART 100 UNITS/ML, PEN SQ-INSULIN SCH ×3 (12:44→21:11)
[2017-02-19 15:00] VITALS: BP_SYST 102; BP_SYST 137; BP_SYST 153; BP_DIAS 54; BP_DIAS 76; BP_DIAS 82
[2017-02-19] MEDS: WARFARIN 5 MG TABLET PO-COUM SCH (18:15)
[2017-02-19 19:15] VITALS: BP 122/63
[2017-02-19 19:18] VITALS: BP 124/63
[2017-02-19 19:20] VITALS: BP 108/66
[2017-02-19 19:20] LABS: PROSTATE SPECIFIC ANTIGEN 14.3 ng/mL (0.00-4.00)
[2017-02-19] MEDS ORDERED: BETHANECHOL 25 MG TABLET PO SCH (21:00)
[2017-02-19] MEDS: ATORVASTATIN 40 MG TABLET PO SCH (21:12)
[2017-02-19] MEDS: BETHANECHOL 10 MG TABLET PO SCH (21:12)
[2017-02-20 03:30] VITALS: BP_SYST 109; BP_SYST 75; BP_SYST 95; BP_SYST 96; BP_DIAS 45; BP_DIAS 58; BP_DIAS 59; BP_DIAS 70
[2017-02-20] MEDS: SAXAGLIPTIN PO SCH (07:55)
[2017-02-20 08:08] VITALS: BP_SYST 108; BP_SYST 120; BP_SYST 99; BP_DIAS 56; BP_DIAS 59; BP_DIAS 62
[2017-02-20] MEDS: INSULIN DETEMIR 100 UNITS/ML, PEN SQ-INSULIN SCH (08:32)
[2017-02-20] MEDS: INSULIN ASPART 100 UNITS/ML, PEN SQ-INSULIN SCH ×2 (08:32→13:01)
[2017-02-20] MEDS: POLYETHYLENE GLYCOL 17 GM PACKET PO SCH (08:32)
[2017-02-20] MEDS: CLOPIDOGREL 75 MG TABLET PO SCH (08:34)
[2017-02-20] MEDS: METHOCARBAMOL 750 MG TABLET PO SCH (08:34)
[2017-02-20] MEDS: SENNOSIDES 8.6 MG TABLET PO SCH (08:34)
[2017-02-20] MEDS: GABAPENTIN 400 MG CAPSULE PO SCH (08:34)
[2017-02-20] MEDS: OMEPRAZOLE 20 MG CAPSULE.DR PO SCH (08:34)
[2017-02-20] MEDS: MIDODRINE 5 MG TABLET PO SCH (08:34)
[2017-02-20] MEDS: CALCIUM CARBONATE 500 MG TAB.CHEW PO SCH (08:35)
[2017-02-20] MEDS: CYANOCOBALAMIN 1,000 MCG TABLET PO SCH (08:35)
[2017-02-20] MEDS: CHOLECALCIFEROL 400 UNITS TABLET PO SCH (08:35)
[2017-02-20] MEDS: BETHANECHOL 10 MG TABLET PO SCH (08:35)
[2017-02-20] MEDS ORDERED: FLUDROCORTISONE 0.1 MG TABLET PO SCH (13:00)
[2017-02-20] MEDS ORDERED: METHOCARBAMOL 750 MG TABLET PO PRN (13:00)
[2017-02-20 13:24] VITALS: BP 130/64
[2017-02-20] MEDS ORDERED: SENN-109 PO (13:31)
== END 2017-02-20 16:15 | disposition home or self-care (01) | DRG 380 ==
LOC: ED 08:46 → EDIP 10:08 → 4EST 12:06
PROVIDERS: ADMIT Internal Medicine; ATTEND Family Medicine
PROC: 0DJ08ZZ Inspection of Upper Intestinal Tract, Via Natural or Artificial Opening Endoscopic (ICD-10-PCS; principal; 2017-02-04 08:30)
DX: K22.11 Ulcer of esophagus with bleeding (principal); N17.0 Acute kidney failure with tubular necrosis; E43 Unspecified severe protein-calorie malnutrition; I26.99 Other pulmonary embolism without acute cor pulmonale; D68.32 Hemorrhagic disorder due to extrinsic circulating anticoagulants; D62 Acute posthemorrhagic anemia; K92.0 Hematemesis; D75.89 Other specified diseases of blood and blood-forming organs; E11.40 Type 2 diabetes mellitus with diabetic neuropathy, unspecified; E11.65 Type 2 diabetes mellitus with hyperglycemia; E78.5 Hyperlipidemia, unspecified; E86.0 Dehydration; E87.5 Hyperkalemia; I10 Essential (primary) hypertension; I27.2 Other secondary pulmonary hypertension; I73.9 Peripheral vascular disease, unspecified; I95.1 Orthostatic hypotension; J44.9 Chronic obstructive pulmonary disease, unspecified; N40.1 Benign prostatic hyperplasia with lower urinary tract symptoms; Z79.01 Long term (current) use of anticoagulants; Z79.4 Long term (current) use of insulin; Z79.82 Long term (current) use of aspirin; Z88.0 Allergy status to penicillin; Z95.820 Peripheral vascular angioplasty status with implants and grafts; I80.9 Phlebitis and thrombophlebitis of unspecified site; Z68.27 Body mass index [BMI] 27.0-27.9, adult; T39.015A Adverse effect of aspirin, initial encounter; T45.525A Adverse effect of antithrombotic drugs, initial encounter; T45.515A Adverse effect of anticoagulants, initial encounter; K29.91 Gastroduodenitis, unspecified, with bleeding
CPT/HCPCS: 36415; 71010; 71275; 74000; 80048; 80053; 81001; 82378; 82533; 82570; 82962; 83036; 83540; 83550; 83605; 83690; 84133; 84153; 84156; 84300; 84443; 85014; 85018; 85025; 85520; 85610; 85730; 86677; 86850; 86900; 93005; 93306; 93880; 93970; 94640; 96365; 96375; 99152; 99153; J1644; J1815; J2250; J2405; J3010; J7608; J7626; Q9967; C9113; J7030; J7040